=== PATIENT | female | born 1965 | race Caucasian/White ===

== ENCOUNTER → 2020-02-01 | Outpatient (CLI) | payer BC ==
[~2020-02-01] MED LIST: ADVAIR 250/501 EA INH; AMOXICILLIN500 MG PO; ANTIVERT/2525 MG PO; ATIVAN0.5 MG PO; AUGMENTIN 875875 MG PO; BENTYL10 MG PO; CIPRO500 MG PO; CIPRODEX 0.3%-7.5 ML OT; CLARITIN10 MG PO; COPAXONE40 MG/ML SC; DIFLUCAN150 MG PO; EPI-PEN1 MG/ML MR; FIORICET 325 MG1 TAB PO; FLEXERIL10 MG PO; Fioricet 325 MG1 TAB PO; HYDROCODONE BIT1 T11 PO; MOTRIN600 MG PO; MOTRIN800 MG PO; NKHM; OTIC SOLUTION 110 M1 OT; PEPCID20 MG PO; PREDNICOT20 MG PO; PREDNISONE20 MG PO; PROTONIX40 MG PO; TRAMADOL HCL50 MG PO; ULTRAM50 MG PO; VICODIN 5/500 505 MG PO; ZITHROMAX Z PA250 MG PO; Zofran4 MG PO; [UNRECOGNIZED DRUG - REMARK] PO
== END | disposition home or self-care (01) ==
LOC: COVID19 10:42
PROVIDERS: ATTEND Physician Assistant
DX: Z20.828 Contact with and (suspected) exposure to other viral communicable diseases (principal)

== ENCOUNTER → 2020-02-05 | Outpatient (CLI) | payer BC ==
[2020-02-05 14:06] LABS: HEMATOCRIT 45.5 % (37.0-47.0); MEAN CELL VOLUME 91.2 fl (81.0-99.0); MEAN CORPUSCULAR HGB 30.1 pg (27.0-31.0); MEAN PLATELET VOLUME 11.1 fl (9.6-12.3); RED BLOOD COUNT 4.99 10*6/uL (4.10-5.10); RED CELL DISTRI WIDTH 12.5 % (0-14.5); WHITE BLOOD COUNT 9.2 10*3/uL (4.8-10.8)
[2020-02-05 14:30] LABS: ALBUMIN 3.5 gm/dl (3.1-4.5); ALKALINE PHOSPHATASE 117 U/L (45-117); BUN 12 mg/dl (7-24); CHLORIDE 109 mmol/L (98-107); CHOLESTEROL 206 mg/dL (<200); HDL CHOLESTEROL 36 mg/dl (40-60); LDL CHOLESTEROL 105 mg/dL (9-159); POTASSIUM 4.1 mmol/L (3.5-5.1); SGOT/AST 25 IU/L (3-35); SGPT/ALT 30 U/L (12-78); SODIUM 142 mmol/L (136-145); TOTAL PROTEIN 7.8 gm/dL (6.4-8.2); TRIGLYCERIDES 325 mg/dl (<150); VLDL CHOLESTEROL 65 mg/dL (6-40)
== END | disposition home or self-care (01) ==
LOC: LAB 12:54 → COVID19 12:54
PROVIDERS: ATTEND Family Medicine
DX: Z20.828 Contact with and (suspected) exposure to other viral communicable diseases (principal); E78.00 Pure hypercholesterolemia, unspecified

== ENCOUNTER 2020-08-18 16:12 | Emergency (ER) | payer SELFPAY ==
[~2020-08-18] VITALS: Wt 121.1 kg
[2020-08-18] MEDS ORDERED: EPIPEN 2-P0.3 MG/0.3 IJ (17:22)
[2020-08-18] MEDS ORDERED: CLARITIN10 MG PO (17:22)
== END 2020-08-18 18:03 | disposition home or self-care (01) ==
LOC: ED 16:12
DX: T63.481A Toxic effect of venom of other arthropod, accidental (unintentional), initial encounter (principal); L08.89 Other specified local infections of the skin and subcutaneous tissue; F17.200 Nicotine dependence, unspecified, uncomplicated; Z98.890 Other specified postprocedural states; Z98.51 Tubal ligation status; Y92.89 Other specified places as the place of occurrence of the external cause

== ENCOUNTER 2023-03-24 18:23 | Emergency (ER) | payer SELFPAY ==
[~2023-03-24] VITALS: Ht 165.1 cm; Wt 109.3 kg
[~2023-03-24 18:23] MED LIST changes: +EPIPEN 2-P0.3 MG/0.3 IJ
[2023-03-24 18:47] LABS: BASO # 0.1 10*3/uL (0.0-0.1); BASO % 0.8 % (0.0-1.0); EOS # 0.4 10*3/uL (0.0-0.4); EOS % 3.7 % (1.0-4.0); HEMATOCRIT 48.5 % (37.0-47.0); LYMPH # 3.5 10*3/uL (1.3-4.4); LYMPH % 30.6 % (27.0-41.0); MEAN CELL VOLUME 91.7 fl (81.0-99.0); MEAN CORPUSCULAR HGB 29.9 pg (27.0-31.0); MEAN CORPUSCULAR HGB CONC 32.6 g/dl (33.0-37.0); MEAN PLATELET VOLUME 10.7 fl (9.6-12.3); MONO # 0.8 10*3/uL (0.1-1.0); MONO % 7.2 % (3.0-9.0); NEUT # 6.6 10*3/uL (2.3-7.9); NEUT % 57.4 % (47.0-73.0); PLATELET COUNT AUTOMATED 284 10*3/uL (130-400); RED BLOOD COUNT 5.29 10*6/uL (4.10-5.10); RED CELL DISTRI WIDTH 12.5 % (0-14.5); WHITE BLOOD COUNT 11.4 10*3/uL (4.8-10.8)
[2023-03-24 19:05] LABS: ALKALINE PHOSPHATASE 105 U/L (46-116); BUN 17 mg/dl (9-23); CHLORIDE 109 mmol/L (98-107); POTASSIUM 4.2 mmol/L (3.4-5.1); SGPT/ALT 23 U/L (5-49); TOTAL PROTEIN 7.6 gm/dL (6.0-8.0)
[2023-03-24 19:07] LABS: ACT PARTIAL THROMBO TIME 30.9 SECONDS (20.0-32.1)
== END 2023-03-24 22:33 | disposition home or self-care (01) ==
LOC: ED 18:23
PROVIDERS: Internal Medicine
DX: R07.89 Other chest pain (principal); J44.9 Chronic obstructive pulmonary disease, unspecified; F32.A Depression, unspecified; F41.9 Anxiety disorder, unspecified; G43.909 Migraine, unspecified, not intractable, without status migrainosus; Z53.29 Procedure and treatment not carried out because of patient's decision for other reasons

== ENCOUNTER 2023-06-15 12:44 | Emergency (ER) | payer SELFPAY ==
[~2023-06-15] VITALS: Wt 117.9 kg
[2023-06-15] MEDS ORDERED: Ondansetron Hydrochloride 4 MG/2 ML VIAL IV ONE (12:50)
[2023-06-15] MEDS ORDERED: Ketorolac Tromethamine 15 MG/ML VIAL IV ONE (12:50)
[2023-06-15] MEDS ORDERED: MORPHINE Sulfate 2 MG/ML SYR IV ONE (12:50)
[2023-06-15] MEDS ORDERED: SODIUM CHLORIDE 0.9% 1,000 ML IV ONE (12:50)
[2023-06-15 13:09] LABS: HEMATOCRIT 46.3 % (37.0-47.0); MANUAL DIFF REFLEX YES; MEAN CELL VOLUME 89.6 fl (81.0-99.0); MEAN CORPUSCULAR HGB 30.2 pg (27.0-31.0); MEAN CORPUSCULAR HGB CONC 33.7 g/dl (33.0-37.0); MEAN PLATELET VOLUME 10.6 fl (9.6-12.3); PLATELET COUNT AUTOMATED 286 10*3/uL (130-400); RED BLOOD COUNT 5.17 10*6/uL (4.10-5.10); RED CELL DISTRI WIDTH 12.8 % (0-14.5); WHITE BLOOD COUNT 16.9 10*3/uL (4.8-10.8)
[2023-06-15 13:30] LABS: ATYPICAL LYMPHS 1 % (0-0); TOTAL CELLS COUNTED 100 #CELLS
[2023-06-15 13:31] LABS: PLATELET SUFFICIENCY NORMAL (NORMAL); POLYCHROMASIA SLIGHT; VACUOLATION OF NEUTROPHILS SLIGHT
[2023-06-15 13:37] LABS: ALKALINE PHOSPHATASE 85 U/L (46-116); BUN 16 mg/dl (9-23); CHLORIDE 108 mmol/L (98-107); LIPASE 43 U/L (12-53); POTASSIUM 3.8 mmol/L (3.4-5.1); SGPT/ALT 18 U/L (5-49); TOTAL PROTEIN 6.7 gm/dL (6.0-8.0)
[2023-06-15] MEDS ORDERED: IOHEXOL 300 MG/ML 100 ML VIAL IV ONE (13:40)
[2023-06-15] MEDS ORDERED: diphenhydrAMINE hydrochloride 50 MG/ML VIAL IV ONE (14:55)
[2023-06-15] MEDS ORDERED: Metoclopramide Hydrochloride 10 MG/2 ML AMP IV ONE (14:55)
[2023-06-15 15:15] LABS: BILIRUBIN Negative (Negative); BLOOD Negative (Negative); CLARITY Clear (Clear); COLOR Yellow (Yellow); GLUCOSE Negative (Negative); KETONE Negative (Negative); LEUKO ESTERASE Negative (Negative); NITRITE Negative (Negative); PH 5.5 (4.5-8.0); SPECIFIC GRAVITY 1.025 (1.001-1.030); UROBILINOGEN 0.2 E.U./dl (0.0-1.0)
[2023-06-15 15:23] LABS: MUCOUS 1+; RBC 0-2 rbc/hpf (0-2); WBC 0-2 wbc/hpf (0-5)
[2023-06-15] MEDS ORDERED: TRAMADOL HCL50 MG PO (15:37)
[2023-06-15] MEDS ORDERED: PEPCID20 MG PO (15:37)
== END 2023-06-15 15:38 | disposition home or self-care (01) ==
LOC: ED 12:44
PROVIDERS: Emergency Medicine
DX: K29.70 Gastritis, unspecified, without bleeding (principal); J44.9 Chronic obstructive pulmonary disease, unspecified; F32.A Depression, unspecified; F41.9 Anxiety disorder, unspecified; G43.909 Migraine, unspecified, not intractable, without status migrainosus; Z98.51 Tubal ligation status; Z98.890 Other specified postprocedural states; Z90.711 Acquired absence of uterus with remaining cervical stump; F17.200 Nicotine dependence, unspecified, uncomplicated

== ENCOUNTER 2024-03-11 16:10 | Emergency (ER) | payer SELFPAY ==
[~2024-03-11] VITALS: Ht 165.1 cm; Wt 117.9 kg
[2024-03-11] MEDS ORDERED: NAPROSYN500 MG PO (17:28)
[2024-03-11] MEDS ORDERED: Acetaminophen/Oxycodone 5 MG/325 MG TABLET PO ONE (17:30)
== END 2024-03-11 17:57 | disposition home or self-care (01) ==
LOC: ED 16:10
DX: S93.402A Sprain of unspecified ligament of left ankle, initial encounter (principal); F41.9 Anxiety disorder, unspecified; J44.9 Chronic obstructive pulmonary disease, unspecified; F32.A Depression, unspecified; G43.909 Migraine, unspecified, not intractable, without status migrainosus; Z90.711 Acquired absence of uterus with remaining cervical stump; Z98.890 Other specified postprocedural states; W00.0XXA Fall on same level due to ice and snow, initial encounter; Y93.89 Activity, other specified; Y92.89 Other specified places as the place of occurrence of the external cause; Y99.8 Other external cause status

== ENCOUNTER 2024-06-15 17:53 | Emergency (ER) | payer SELFPAY ==
[~2024-06-15] VITALS: Ht 165.1 cm; Wt 120.2 kg
[~2024-06-15 17:53] MED LIST changes: +NAPROSYN500 MG PO
[2024-06-15] MEDS ORDERED: AMOX-CLAV 875-1 EACH PO (18:37)
== END 2024-06-15 18:42 | disposition home or self-care (01) ==
LOC: ED 17:53
DX: H66.91 Otitis media, unspecified, right ear (principal); L04.0 Acute lymphadenitis of face, head and neck; F41.9 Anxiety disorder, unspecified; F17.290 Nicotine dependence, other tobacco product, uncomplicated; Z79.899 Other long term (current) drug therapy; Z98.890 Other specified postprocedural states; Z90.710 Acquired absence of both cervix and uterus

== ENCOUNTER → 2025-01-14 | Outpatient (CLI) | payer BC ==
[~2025-01-14] MED LIST changes: +AMOX-CLAV 875-1 EACH PO
== END | disposition home or self-care (01) ==
LOC: CT 01-06 15:00
PROVIDERS: ATTEND Physician Assistant
DX: Z12.2 Encounter for screening for malignant neoplasm of respiratory organs (principal); Z12.31 Encounter for screening mammogram for malignant neoplasm of breast; F17.200 Nicotine dependence, unspecified, uncomplicated; R92.313 Mammographic fatty tissue density, bilateral breasts; R92.1 Mammographic calcification found on diagnostic imaging of breast

== ENCOUNTER → 2025-01-20 | Outpatient (CLI) | payer BC | END | disposition home or self-care (01) | LOC: CARD 00:35 | PROVIDERS: ATTEND Physician Assistant | DX: R01.1 Cardiac murmur, unspecified (principal) ==